=== PATIENT | female | born 2000 | race African-American/Black ===

== ENCOUNTER 2022-10-04 13:35 | Emergency (ER) | payer OTHER, SELFPAY ==
--- NOTE | ~2022-10-04 | XR_ITS ---
EXAM: XR elbow RT min 3V DATE: 10/04/2022 15:27 HISTORY: RIGHT ELBOW PAIN ALL AROUND S/P FALL TODAY . COMPARISON: None available. FINDINGS: Normal mineralization. No fracture or dislocation. No lytic or blastic lesion. Joint space s are maintained. No erosion or periosteal change. Soft tissues within normal limits. IMPRESSION: No acute osseous finding in the right elbow. Reviewed, dictated and finalized at location K. [facility]
--- NOTE | ~2022-10-04 | XR_ITS ---
EXAMINATION: XR knee RT min 4V DATE: 10/04/2022 15:27 INDICATION: Right knee pain TECHNIQUE: Four views of the right knee were obtained. COMPARISON: None. FINDINGS: Alignment is normal. No fracture or osteochondral lesion. Joint spaces are normal with no e rosions. No joint effusion/synovitis. Soft tissues are unremarkable. IMPRESSION: 1. No acute osseous abnormality. Reviewed, dictated and finalized at location B. GR[facility]ER
[2022-10-04 14:02] VITALS: BP 126/78; PULSE 87; RESP 14; TEMP 37.4; O2SAT 99
--- NOTE | 2022-10-04 16:18 | ED.FALL ---
HPI - Fall General Chief Complaint: Fall Stated Complaint: fall with c/o back, R knee, and R elbow pain Time Seen by Provider: 10/04/22 16:06 History of Present Illness HPI Narrative: 22-year-old female no medical problems presents emergency room for injury sustained in a ground-level mechanical fall. 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 Patient was ambulatory following the incident. Patient denies head injury. Pain is worse with ambulation and movement of her right elbow. Patient did not take any medications to alleviate her symptoms. Did not apply ice to injured areas. Related Data Allergies Allergy/AdvReac Type Severity Reaction Status Date / Time No Known Allergies Allergy Verified 10/04/22 16:15 Review of Systems Review of Systems: CONSTITUTIONAL: Denies fever, chills, or sweats. EYES: Denies visual changes, redness, or discharge. ENT: Denies rhinorrhea, congestion, sore throat, or otalgia. CARDIOVASCULAR: Denies chest pain, palpitations, or edema. RESPIRATORY: Denies cough or dyspnea. GASTROINTESTINAL: Denies abdominal pain, nausea, vomiting, or diarrhea. GENITOURINARY: Denies dysuria or hematuria. SKIN: Denies rash or itching. MUSCULOSKELETAL: Reports right elbow and right knee pain NEUROLOGIC: Denies headache, numbness, dizziness, or weakness. PSYCHIATRIC: Denies anxiety or depression. Exam Narrative: GENERAL: Well-appearing, well-nourished, no physical limitations, and in no acute distress. HEAD: Normocephalic, atraumatic. EYES: Conjunctivae normal, PERRLA and EOMI. CHEST: Clear to auscultation. No respiratory distress. No wheezes rales or rhonchi. HEART: Regular rate and rhythm. No murmur heard. Normal peripheral pulses. EXTREMITIES: Right knee: Minimal STS, +TTP to lateral surface of knee, no patellar tracking, No joint laxity, FROM. Neurovascular is intact distally. Right elbow: +TTP over the olecranon with no STS. FROM. Neurovascular is intact distally SKIN: Warm, dry, no rash. No noted wounds NEURO: No focal deficits. Alert and oriented x3. MAEW. CN's II-XI intact bilaterally, normal gait PSYCH: Cooperative. Normal mood and affect. Course Vital Signs Vital signs: Vital Signs Temperature 37.4 C 10/04/22 14:02 Pulse Rate 87 10/04/22 14:02 Respiratory Rate 14 10/04/22 14:02 Blood Pressure 126/78 10/04/22 14:02 Pulse Oximetry 99 10/04/22 14:02 Oxygen Delivery Room Air 10/04/22 14:02 Temperature 37.4 C 10/04/22 14:02 Pulse Rate 87 10/04/22 14:02 Respiratory Rate 14 10/04/22 14:02 Blood Pressure 126/78 10/04/22 14:02 Pulse Oximetry 99 10/04/22 14:02 Oxygen Delivery Room Air 10/04/22 14:02 Discharge Plan Discharge Clinical Impression: Contusion of knee, right, Contusion of elbow, right Patient Disposition: Home, Self-Care Condition: Stable Instructions: Antibiotic Form, Contusion in Adults (ED) Prescriptions: New naproxen 500 mg tablet 500 mg PO BID Qty: 14 0RF Follow-up/Referrals: PHYSICIAN,[facility] [Primary Care Provider] -
== END 2022-10-04 16:42 | disposition home or self-care (01) ==
LOC: ANHED 16:34
PROVIDERS: Emergency Provider Nurse Practitioner Family
DX: S80.01XA Contusion of right knee, initial encounter (principal); S50.01XA Contusion of right elbow, initial encounter; W01.0XXA Fall on same level from slipping, tripping and stumbling without subsequent striking against object, initial encounter
CPT/HCPCS: 73080; 73564; 99284